=== PATIENT | male | born 1990 | race Hispanic/Latino ===

== ENCOUNTER 2018-12-20 11:21 | Emergency (ER) | payer BC ==
--- NOTE | 2018-12-20 11:38 | EDM.PDOC ---
ED HPI GENERAL MEDICAL PROBLEM - General Chief Complaint: Cardiovascular Problem Stated Complaint: CHEST PAIN/SENT FROM [facility] Time Seen by Provider: 12/20/18 11:31 Source of Information: Reports: Patient History Limitations: Reports: No Limitations - History of Present Illness INITIAL COMMENTS - FREE TEXT/NARRATIVE: Patient's unfortunate morbidly obese 28-year-old male who presents to emergency department today with complaint of chest pain. Patient reports exertional state of health yesterday morning when he woke and was having sternal sharp stabbing type chest pain. Patient reports that he seen home yesterday and did not go to work because of the pain and reports that the pain is a mild sharp stabbing type pain which nothing makes the pain better and nothing makes the pain worse patient reports that he went to bed last night when he woke with pain today he decided he needed be evaluated. Patient was seen at a where he was evaluated for his chest pain had labs drawn at that time and showed a CBC and CMP which showed a mildly elevated AST and ALTs consistent with his previous drinking habits, otherwise no clinically significant abnormalities, the patient had an EKG done there is brought with him which shows left ventricular hypertrophy I' ll otherwise normal sinus rhythm heart rate is 65 with no acute ischemic changes Middle Chest Pain Score (Numeric/FACES): 4 - Related Data Allergies Allergy/AdvReac Type Severity Reaction Status Date / Time No Known Allergies Allergy Verified 12/20/18 11:35 Home Meds: Home Meds Ibuprofen 800 mg PO TID PRN #15 tablet 12/20/18 [Rx] ED ROS GENERAL - Review of Systems Review Of Systems: See Below Respiratory: Denies: Shortness of Breath, Wheezing, Pleuritic Chest Pain Cardiovascular: Reports: Chest Pain. Denies: Dyspnea on Exertion GI/Abdominal: Denies: Abdominal Pain, Nausea, Vomiting Musculoskeletal: Denies: Neck Pain, Shoulder Pain ED EXAM, GENERAL - Physical Exam Exam: See Below Exam Limited By: No Limitations General Appearance: Alert, WD/WN, Mild Distress Throat/Mouth: Normal Inspection, Normal Lips, Normal Teeth, Normal Gums, Normal Oropharynx, Normal Voice, No Airway Compromise Head: Atraumatic, Normocephalic Neck: Normal Inspection, Supple, Non-Tender, Full Range of Motion Respiratory/Chest: No Respiratory Distress, Lungs Clear, Normal Breath Sounds, No Accessory Muscle Use, Chest Non-Tender Cardiovascular: Normal Peripheral Pulses, Regular Rate, Rhythm, No Edema, No JVD , No Murmur, No Rub GI/Abdominal: Normal Bowel Sounds, Soft, Tender (Mild tenderness epigastric no right upper quadrant tenderness negative Schulte sign) Back Exam: Normal Inspection Extremities: Normal Inspection, Normal Range of Motion, Non-Tender, Normal Capillary Refill, No Pedal Edema Neurological: Alert, Oriented, CN II-XII Intact, Normal Cognition, Normal Gait, Normal Reflexes, No Motor/Sensory Deficits Skin Exam: Warm, Dry, Intact, Normal Color, No Rash Lymphatic: No Adenopathy EKG INTERPRETATION EKG Date: 12/20/18 Time: 10:35 Rhythm: NSR Rate (Beats/Min): 81 Abercrombie: LAD-Left Abercrombie Deviation P-Wave: Present QRS: Normal (Q waves V1 and V2 old anterior ID suspected) ST-T: Other (NSST changes) Course - Vital Signs Last Recorded V/S: Last Vital Signs Temp 98.1 F 12/20/18 11:30 Pulse 85 12/20/18 11:30 Resp 16 12/20/18 11:30 BP 178/91 H 12/20/18 11:30 Pulse Ox 97 12/20/18 11:30 - Orders/Labs/Meds Labs: Laboratory Tests 12/20/18 12/20/18 Range/Units 12:00 12:00 D-Dimer, Quantitative < 0.19 L (0.19-0.50) mg/L Troponin I < 0.017 (0.00-0.056) ng/mL C-Reactive Protein < 0.2 (<1.0) mg/dL Meds: Medications Discontinued Medications Generic Name Dose Route Start Last Admin Trade Name Freq PRN Reason Stop Dose Admin Al Hydroxide/Mg Hydroxide 30 0 ml 12/20/18 11:53 12/20/18 12:02 ml/ Lidocaine HCl 10 ml PO 12/20/18 11:54 45 ml ONETIME ONE Administration - Re-Assessments/Exams Free Text/Narrative Re-Assessment/Exam: 12/20/18 12:44 Chest x-ray interpreted by me DWIGHT Departure - Departure Time of Disposition: 13:34 Disposition: Home, Self-Care 01 Clinical Impression: Chest pain Qualifiers: Chest pain type: other chest pain Qualified Code(s): R07.89 - Other chest pain ; R07.8 - Other chest pain Prescriptions: Ibuprofen 800 mg PO TID PRN #15 tablet PRN Reason: Pain Referrals: PCP,None [Primary Care Provider] - Forms: ED Department Discharge Additional Instructions: Home, rest, return as needed for worsening condition, take Prilosec OTC daily for 1 month, follow-up with your PCP regarding your blood pressure
[2018-12-20] MEDS ORDERED: Alum Hydrox/Mag Hydrox/Simeth 30 ML, Lidocaine 2% 10 ML PO ONE ×2 (11:53)
--- NOTE | 2018-12-20 13:19 | CR ---
Chest: Portable view of the chest was obtained. Comparison: No prior chest x-ray. Heart size and mediastinum are normal. Lungs are clear with no acute parenchymal change. Bony structures are grossly intact. Impression: 1. Nothing acute is seen on portable chest x-ray. Diagnostic code #1
[2018-12-20] MEDS ORDERED: Morphine 4 MG/ML Syringe IVPUSH ONE (13:46)
== END 2018-12-20 13:45 | disposition home or self-care (01) ==
LOC: JD.ED 11:21
DX: R07.89 Other chest pain (principal)
CPT/HCPCS: 36415; 71045; 84484; 85379; 86140; 99285; A9270; 93010; 99283